=== PATIENT | male | born 1975 | race Two or more races ===

== ENCOUNTER 2018-06-08 07:48 | Emergency (ER) | payer OTHER ==
[~2018-06-08] VITALS: Ht 175.3 cm; Wt 122.5 kg
[~2018-06-08 07:48] MED LIST: CIPRO500 MG PO; FLAGYL500MG PO; INTESTINEX680 MG PO; ULTRACET PO
[2018-06-08] MEDS ORDERED: CIPRO500 MG PO (08:10)
[2018-06-08] MEDS ORDERED: FLAGYL500MG (08:10)
[2018-06-08] MEDS ORDERED: DICY20TA PO (08:11)
== END 2018-06-08 14:33 | disposition home or self-care (01) ==
LOC: ER 07:48
DX: K58.9 Irritable bowel syndrome, unspecified (principal)

== ENCOUNTER 2024-03-26 23:46 | Emergency (ER) | payer OTHER ==
[~2024-03-26] VITALS: Ht 175.3 cm; Wt 126.1 kg
[~2024-03-26 23:46] MED LIST changes: +CIPRO500 MG; +DICY20TA; +DICY20TA PO; +FLAGYL500MG
[2024-03-27 00:45] VITALS: BP 160/70; O2SAT 96
[2024-03-27] MEDS ORDERED: KETOROLAC TROMETHAMINE 30 MG VIAL IV STA (02:31)
[2024-03-27] MEDS ORDERED: MEPERIDINE HCL/PF 50 MG/ML VIAL IM STA (02:31)
[2024-03-27] MEDS ORDERED: PROMETHAZINE HCL 50 MG/ML AMPUL IM STA (02:32)
[2024-03-27] MEDS ORDERED: KETOROLAC TROMETHAMINE 60 MG VIAL IM ONE (02:46)
[2024-03-27] MEDS ORDERED: PROMETHAZINE HCL 50 MG/ML AMPUL IM ONE (02:47)
[2024-03-27 03:42] LABS: PH,URINE 5.5 (5.0-8.0); URINE APPEARANCE Clear; URINE BILIRRUBIN Negative (NEGATIVE); URINE BLOOD Large; URINE COLOR Yellow; URINE GLUCOSE Negative (NEGATIVE); URINE KETONE Negative (NEGATIVE); URINE LEUKOCYTE Negative; URINE NITRATE Negative
[2024-03-27 03:46] LABS: URINE BACTERIA 53.8 uL (0.0-1933); URINE EPITHELIAL CELLS 1.5 uL (0.0-38.8); URINE RBC 1209.3 uL (0.0-20.8); URINE WBC 13.2 uL (0.0-23.2)
[2024-03-27 03:57] LABS: HEMATOCRIT 44.4 % (39.0-48.0); HEMOGLOBIN 15.6 g/dL (13-16.00); MEAN CELL VOLUME 90.2 fL (80.0-100.00); MEAN CORPUSCULAR HEMOGLOBIN 31.6 pg (27.00-32.0); PLATELET COUNT 268 K/uL (150-450); RED BLOOD COUNT 4.93 M/uL (4.00-6.00); RED CELL DISTRIBUTION WIDTH 13.4 % (11.5-14.5)
[2024-03-27 04:01] LABS: URINE CAST 0.44 uL (0.0-1.40); URINE PROTEIN 100 (NEGATIVE)
[2024-03-27 04:33] LABS: CALCIUM 8.9 mg/dL (8.5-10.1); CREATININE SERUM 1.04 mg/dL (0.70-1.30); GFR 75.9; POTASSIUM 4.28 mEq/L (3.5-5.1)
== END 2024-03-27 07:34 | disposition home or self-care (01) ==
LOC: ER 23:48
DX: N20.1 Calculus of ureter (principal); R10.2 Pelvic and perineal pain; Z88.0 Allergy status to penicillin